=== PATIENT | female | born 1985 | race Caucasian/White ===

== ENCOUNTER 2022-03-23 11:27 | Emergency (ER) | payer OTHER ==
[2022-03-23 12:24] VITALS: BP 128/79; PULSE 88; RESP 18; TEMP 99; BMI 24.9
[2022-03-23 13:25] LABS: BASO % 0.3 % (0-2.0); EOS % 0.8 % (0-4.5); HEMATOCRIT 39.6 % (32.4-45.2); HEMOGLOBIN 12.8 GM/dL (10.7-15.3); LYMPH % 12.8 % (8-40); MCH 27.3 pg (25.7-33.7); MCHC 32.3 g/dl (32.0-36.0); MEAN CELL VOLUME 84.6 fl (80-96); MONO % 10.2 % (3.8-10.2); NEUT % 75.9 % (42.8-82.8); PLATELET COUNT 234 10^3/uL (134-434); RBC 4.68 M/mm3 (3.60-5.2); WHITE BLOOD COUNT 8.6 K/mm3 (4.0-10.0)
[2022-03-23 13:33] LABS: INR 1.12 (0.83-1.09); PROTHROMBIN TIME (PATIENT) 12.9 SEC (9.7-13.0)
[2022-03-23 13:49] LABS: THROAT:GRP A STREP NOT DETECTED (NOTDETECTED)
[2022-03-23 13:52] LABS: CHLORIDE 107 mmol/L (98-107); SODIUM 139 mmol/L (136-145)
[2022-03-23 13:54] LABS: CALCIUM 9.5 mg/dL (8.5-10.1)
[2022-03-23 13:55] LABS: ALBUMIN 4.1 g/dl (3.4-5.0); ANION GAP 7 MMOL/L (8-16); BLOOD UREA NITROGEN 15.6 mg/dL (7-18); CO2 25 mmol/L (21-32); GLUCOSE,RANDOM 94 mg/dL (74-106)
[2022-03-23 13:58] LABS: CREATININE 0.7 mg/dL (0.55-1.3); SGOT/AST 13 U/L (15-37); SGPT/ALT 20 U/L (13-61)
[2022-03-23 14:00] LABS: BILIRUBIN,TOTAL 0.5 mg/dL (0.2-1); TOT PROT 7.7 g/dl (6.4-8.2)
[2022-03-23 14:01] LABS: ALK PHOS 43 U/L (45-117); ANISOCYTOSIS 0; MACROCYTOSIS 0; OVALOCYTE 0; TARGET CELLS 1+
== END 2022-03-23 14:37 | disposition home or self-care (01) ==
LOC: JERFT 11:27 → JER 11:27 → JERFT 14:37
DX: R00.2 Palpitations (principal)
CPT/HCPCS: 0241U-QW; 36415; 71046-TC-FY; 80053; 84439; 84443; 84484; 85025; 85610; 87651; 93005; 93010; 99285-25